=== PATIENT | male | born 2000 | race Asian ===

== ENCOUNTER 2022-05-20 05:15 | Emergency (ER) | payer OTHER ==
[~2022-05-20] VITALS: Ht 177.8 cm; Wt 86.2 kg
--- NOTE | 2022-05-20 05:18 | NUR ---
Dr. Narvaez at bedside for MSE.
[2022-05-20] MEDS ORDERED: IV NS 1000 ML 1,000 ML IV ONE (05:30)
[2022-05-20] MEDS ORDERED: ONDANSETRON 4 MG/2 ML VIAL IV ONE (05:30)
[2022-05-20] MEDS ORDERED: HYDROMORPHONE 1 MG/1 ML DISP.SYRIN IV ONE (05:30)
[2022-05-20] MEDS ORDERED: HYDROMORPHONE 1 MG/1 ML DISP.SYRIN ONE (05:34)
[2022-05-20] MEDS ORDERED: ONDANSETRON 4 MG/2 ML VIAL ONE (05:34)
[2022-05-20 05:49] LABS: *BILIRUBIN,URIN NEGATIVE (NEGATIVE); *BLOOD, URINE 3+ (NEGATIVE); *COLOR,URINE YELLOW (YELLOW); *KETONES,URINE NEGATIVE (NEGATIVE); *UROBILINOGEN,URINE 0.2 E.U./dl (NORMAL); LEUKOCYTE ESTERASE ,URINE NEGATIVE (NEGATIVE); NITRITE, URINE NEGATIVE (NEGATIVE); PH,URINE 5.5 (5.0-8.0); UGLUCOSE NEGATIVE (NEGATIVE)
[2022-05-20 05:51] LABS: HEMATOCRIT 43.6 % (36.7-47.1); MEAN CORPUSCULAR HEMOGLOBIN 31.1 uug (23.8-33.4); MEAN CORPUSCULAR VOLUME 88.8 fL (73.0-96.2); PLATELET COUNT (AUTO) 365 K/uL (152-348)
--- NOTE | 2022-05-20 06:03 | NUR ---
Pt out of ER for CT.
[2022-05-20 06:17] LABS: CREATININE 1.2 mg/dL (0.6-1.3); POTASSIUM 3.6 mmol/L (3.5-5.1)
[2022-05-20 06:23] LABS: BILIRUBIN,DIRECT 0.1 mg/dL (0.0-0.2); BILIRUBIN,TOTAL 0.5 mg/dL (0.2-1.0)
[2022-05-20] MEDS ORDERED: OXYC-128 PO (06:23)
[2022-05-20] MEDS ORDERED: PROC10TA29 PO (06:23)
[2022-05-20] MEDS ORDERED: KETOROLAC TROMETHAMINE 30 MG INJ IVP ONE (06:30)
--- NOTE | 2022-05-20 06:30 | NUR ---
Pt back to ER from CT.
[2022-05-20] MEDS ORDERED: KETOROLAC TROMETHAMINE 30 MG INJ ONE (06:34)
[2022-05-20 06:39] LABS: *CLARITY,URINE SLIGHTLY CLOUDY (CLEAR)
[2022-05-20 06:40] LABS: BACTERIA,URINE NONE SEEN /HPF (NONE SEEN); RBC,URINE 50-80 /HPF (0-3); SQUAMOUS EPITHELIAL CELL,UR NONE SEEN /HPF (NONE SEEN); WBC,URINE 0-3 /HPF (0-3)
[2022-05-20 06:41] LABS: MUCUS,URINE FEW /LPF (0-FEW)
--- NOTE | 2022-05-20 06:45 | NUR ---
Patient discharged to home in stable condition. Written and verbal after care instructions given. Patient verbalizes understanding of instructions. Stressed follow up or return to ER for worsening s/s. Pt out of ER with steady gait, no acute signs of distress, VSS, all belongings taken, IV site discontinued, provided with copies of lab and CT results.
[2022-05-20 06:46] VITALS: BP 149/87
== END 2022-05-20 06:46 | disposition home or self-care (01) ==
LOC: ER 05:27
DX: N20.1 Calculus of ureter (principal); K76.0 Fatty (change of) liver, not elsewhere classified; R03.0 Elevated blood-pressure reading, without diagnosis of hypertension
CPT/HCPCS: 99284; 74176; 96374; 96375; 96361; 80076; 80048; 81001; 85025; 36415; J1885; J2405; J1170; J7040

== ENCOUNTER 2024-01-06 06:07 | Inpatient (IN) | payer OTHER ==
[~2024-01-06] VITALS: Ht 177.8 cm; Wt 83.9 kg
[2024-01-06 07:31] LABS: BASOPHILS # (AUTO) 0.1 K/UL (0.0-0.2); BASOPHILS % (AUTO) 0.6 % (0.0-2.0); EOSINOPHILS # (AUTO) 0.1 K/uL (0.0-0.7); EOSINOPHILS % (AUTO) 0.8 % (0.0-7.0); HEMATOCRIT 39.8 % (36.7-47.1); HEMOGLOBIN 13.9 g/dL (12.5-16.3); LYMPHOCYTES # (AUTO) 1.1 K/uL (0.8-4.8); LYMPHOCYTES % (AUTO) 11.9 % (20.5-51.5); MEAN CORPUSCULAR HEMOGLOBIN 29.3 uug (23.8-33.4); MEAN CORPUSCULAR HGB CONC 35 g/dL (32.5-36.3); MEAN CORPUSCULAR VOLUME 84.2 fL (73.0-96.2); MONOCYTES # (AUTO) 0.8 K/uL (0.1-1.30); MONOCYTES % (AUTO) 7.8 % (0.0-11.0); NEUTROPHILS # (AUTO) 7.7 K/uL (1.8-8.9); NEUTROPHILS % (AUTO) 78.9 % (38.5-71.5); PLATELET COUNT (AUTO) 572 K/uL (152-348); RED BLOOD CELL COUNT(AUTO) 4.73 MIL/uL (4.06-5.63); WHITE BLOOD COUNT (AUTO) 9.7 K/uL (3.6-10.2)
[2024-01-06 07:51] LABS: POTASSIUM 4.1 mmol/L (3.5-5.1)
[2024-01-06 07:57] LABS: ALBUMIN 3.1 g/dL (3.4-5.0); BILIRUBIN,TOTAL 0.4 mg/dL (0.2-1.0); TOTAL PROTEIN, SERUM 9.2 g/dL (6.4-8.2)
[2024-01-06 08:32] LABS: CALCIUM 9.5 mg/dL (8.5-10.1)
[2024-01-06 15:35] VITALS: BP 141/93; TEMP 97.1; O2SAT 98
[2024-01-06] MEDS ORDERED: HYDROCODONE/APAP 5-325MG TABLET PO PRN (18:00)
[2024-01-06] MEDS ORDERED: ONDANSETRON 4 MG/2 ML VIAL IV PRN (18:00)
[2024-01-06] MEDS ORDERED: ACETAMINOPHEN 325 MG TABLET PO PRN (18:00)
[2024-01-07 06:40] LABS: BASOPHILS % (AUTO) 0.5 % (0.0-2.0); EOSINOPHILS # (AUTO) 0.2 K/uL (0.0-0.7); EOSINOPHILS % (AUTO) 2.3 % (0.0-7.0); HEMATOCRIT 41.8 % (36.7-47.1); HEMOGLOBIN 14.4 g/dL (12.5-16.3); LYMPHOCYTES % (AUTO) 11.4 % (20.5-51.5); MEAN CORPUSCULAR HEMOGLOBIN 29.2 uug (23.8-33.4); MEAN CORPUSCULAR HGB CONC 34 g/dL (32.5-36.3); MEAN CORPUSCULAR VOLUME 85.2 fL (73.0-96.2); MONOCYTES # (AUTO) 0.6 K/uL (0.1-1.30); MONOCYTES % (AUTO) 6.8 % (0.0-11.0); NEUTROPHILS # (AUTO) 7.2 K/uL (1.8-8.9); PLATELET COUNT (AUTO) 534 K/uL (152-348); RED BLOOD CELL COUNT(AUTO) 4.91 MIL/uL (4.06-5.63); RED CELL DISTRIBUTION WIDTH 13.2 % (12.1-16.2); WHITE BLOOD COUNT (AUTO) 9.1 K/uL (3.6-10.2)
[2024-01-07] MEDS: PANTOPRAZOLE SODIUM 40 MG TABLET.DR PO SCH (06:40)
[2024-01-07 07:06] LABS: ALBUMIN 3.1 g/dL (3.4-5.0); BILIRUBIN,TOTAL 0.4 mg/dL (0.2-1.0); CALCIUM 9.7 mg/dL (8.5-10.1); MAGNESIUM 2.3 mg/dL (1.8-2.4); PHOSPHOROUS 3.6 mg/dL (2.5-4.9); TOTAL PROTEIN, SERUM 9.2 g/dL (6.4-8.2)
[2024-01-07 07:36] LABS: DIFFERENTIAL COMMENT 1
[2024-01-07 08:00] VITALS: BP 144/85; TEMP 97.2; O2SAT 98
[2024-01-07 12:00] VITALS: BP 132/84; TEMP 97.6; O2SAT 98
[2024-01-07 16:00] VITALS: BP 134/76; TEMP 98.2; O2SAT 97
[2024-01-07 20:00] VITALS: BP 123/77; TEMP 98.3; O2SAT 96
[2024-01-08 11:10] LABS: HEPATITIS B SURFACE AB, QUAL Reactive (.); HEPATITIS B SURFACE AG Negative (Negative)
[2024-01-08 11:40] VITALS: BP 128/70; TEMP 97.8; O2SAT 96
[2024-01-08 15:35] VITALS: BP 131/90; TEMP 97.8; O2SAT 97
[2024-01-08 17:29] LABS: HIV-1 p24 ANTIGEN NON REACTIVE (NONREACTIVE); HIV-1/2 ANTIBODY NON REACTIVE (NONREACTIVE)
[2024-01-08 20:35] VITALS: BP 143/85; TEMP 98; O2SAT 98
[2024-01-13 20:06] LABS: COCCIDIOIDES CF SERUM Negative (Neg:<1:2)
== END 2024-01-08 21:15 | disposition home or self-care (01) | DRG 816 ==
LOC: ER 06:13 → MEDSURG3 13:10
PROVIDERS: ADMIT Internal Medicine; ATTEND Internal Medicine
DX: I89.8 Other specified noninfective disorders of lymphatic vessels and lymph nodes (principal); K76.0 Fatty (change of) liver, not elsewhere classified; R19.00 Intra-abdominal and pelvic swelling, mass and lump, unspecified site; E88.09 Other disorders of plasma-protein metabolism, not elsewhere classified; D75.839 Thrombocytosis, unspecified; Z87.442 Personal history of urinary calculi; Z82.3 Family history of stroke; D73.89 Other diseases of spleen; B99.9 Unspecified infectious disease
CPT/HCPCS: 36415; 71045; 76870; 83735; 84100; 85025; 85610; 85730; 86480; 86706; 87040; 87340; 87536; 87806; 93005; A4606; A4663; G0378